=== PATIENT | female | born 1995 | race Caucasian/White ===

== ENCOUNTER → 2019-01-19 | Outpatient (REF) | payer OTHER ==
[2019-01-19 13:27] LABS: HEMATOCRIT 39.9 % (36.0-47.0); HEMOGLOBIN 13.6 g/dl (12.0-15.5); MEAN CORPUSCULAR HEMOGLOBIN 31.4 pg (27.0-33.0); MEAN CORPUSCULAR HGB CONC 34.1 g/dl (32.0-36.5); MEAN CORPUSCULAR VOLUME 92.1 fl (80.0-96.0); PLATELET COUNT, AUTOMATED 186 10^3/uL (150-450); RED BLOOD COUNT 4.33 10^6/uL (4.00-5.40); WHITE BLOOD COUNT 5.5 10^3/uL (4.0-10.0)
[2019-01-19 14:42] LABS: HCG, SERUM QUANTITATIVE 4595 MIU/ML; HEPATITIS C VIRUS ABY INDEX 0.1 INDEX (<0.8); HIV 1&2 SCREEN CENTAUR NEGATIVE (NEGATIVE); RUBELLA IgG QUALITATIVE IMMUNE (IMMUNE)
== END ==
LOC: M LAB REF 12:45
PROVIDERS: ATTEND Nurse Practitioner Women's Health
DX: O36.80X0 Pregnancy with inconclusive fetal viability, not applicable or unspecified (principal); Z32.01 Encounter for pregnancy test, result positive

== ENCOUNTER → 2019-04-27 | Outpatient (CLI) | payer OTHER | LOC: M LAB 10:59 | PROVIDERS: ATTEND Nurse Practitioner Women's Health | DX: Z34.02 Encounter for supervision of normal first pregnancy, second trimester (principal); Z3A.00 Weeks of gestation of pregnancy not specified ==

== ENCOUNTER → 2019-07-02 | Outpatient (CLI) | payer OTHER ==
[2019-07-02 12:40] LABS: HEMATOCRIT 37.1 % (36.0-47.0); HEMOGLOBIN 12.3 g/dl (12.0-15.5); MEAN CORPUSCULAR HEMOGLOBIN 32.8 pg (27.0-33.0); MEAN CORPUSCULAR HGB CONC 33.2 g/dl (32.0-36.5); MEAN CORPUSCULAR VOLUME 98.9 fl (80.0-96.0); PLATELET COUNT, AUTOMATED 158 10^3/uL (150-450); RED BLOOD COUNT 3.75 10^6/uL (4.00-5.40); WHITE BLOOD COUNT 9.4 10^3/uL (4.0-10.0)
== END ==
LOC: M LAB 10:43
PROVIDERS: ATTEND Nurse Practitioner Women's Health
DX: Z34.82 Encounter for supervision of other normal pregnancy, second trimester (principal); Z3A.00 Weeks of gestation of pregnancy not specified

== ENCOUNTER → 2019-08-03 | Outpatient (CLI) | payer OTHER ==
--- NOTE | 2019-08-03 08:02 | REP ---
Clinical: Growth evaluation. Comparison: None . Findings: Examination demonstrates a single live intrauterine in cephalic presentation. motion is identified by technologist. Placenta is noted posterior and grade zero without evidence for placenta previa or abruption. Amniotic fluid volume is normal. Cervix appears closed. No evidence for nuchal cord. Gestational age by LMP the 33 weeks 3 days with TONY 02/18/2020 . Gestational age by current measurements 33 weeks 3 days with TONY 09/18/2019 . FHR equals 155 beats per minute. BPD 8.3 cm 33 weeks 3 days HC 30.8 cm 34 weeks 2 days AC 29.0 cm 33 weeks 0 days FL 6.5 cm 33 weeks 5 days HL 5.7 cm 33 weeks 0 days HC/AC ratio 1.06 Estimated weight 2185 grams ( 45th percentile). Amniotic fluid index: 14.8 cm Umbilical cord SD ratio: 2.25 (2.00 - 3.00) Anatomical assessment demonstrates normal structures including cranium, choroid plexus, cavum, cerebellum/posterior fossa, lungs, four-chamber heart, diaphragm, stomach, three-vessel cord, kidneys/bladder, and spine. Impression: Single live advanced gestation demonstrating appropriate interval growth. Electronically Signed by Nathan Bledsoe MD 08/03/2019 07:54 A
== END ==
LOC: M RAD 06:30
PROVIDERS: ATTEND Obstetrics & Gynecology
DX: O09.893 Supervision of other high risk pregnancies, third trimester (principal); Z3A.33 33 weeks gestation of pregnancy

== ENCOUNTER → 2019-08-10 | Outpatient (CLI) | payer OTHER ==
--- NOTE | 2019-08-10 10:02 | REP ---
Clinical: well-being Comparison: 08/03/2019 . Findings: Examination demonstrates a single live intrauterine in cephalic presentation. motion is identified by technologist. Placenta is noted posterior and grade I I without evidence for placenta previa or abruption. Amniotic fluid volume is normal. No evidence for nuchal cord. Gestational age by LMP 34 weeks 3 days with TONY 09/18/2019 . FHR equals 155 beats per minute. Biophysical profile score: 8/8 Amniotic fluid index: 14.4 cm Umbilical cord SD ratio: 2.82 (2.00 - 3.00). Impression: Single live advanced gestation in cephalic presentation. Biophysical profile score and amniotic fluid volume are normal. Electronically Signed by Nathan Bledsoe MD 08/10/2019 09:54 A
== END ==
LOC: M RAD 09:06
PROVIDERS: ATTEND Obstetrics & Gynecology
DX: O09.893 Supervision of other high risk pregnancies, third trimester (principal)

== ENCOUNTER → 2019-08-14 | Outpatient (REF) | payer OTHER | LOC: M LAB REF 12:32 | PROVIDERS: ATTEND Obstetrics & Gynecology | DX: Z36.85 Encounter for antenatal screening for Streptococcus B (principal) ==

== ENCOUNTER → 2019-08-20 | Outpatient (CLI) | payer OTHER ==
--- NOTE | 2019-08-20 13:47 | REP ---
OB ULTRASOUND: Real-time sonographic evaluation of the gravid uterus is performed. There is a single living intrauterine gestation. The estimated gestational age 35 weeks 6 days with EDC 09/17/2019. heart rate is 152 beats per minute. The amniotic fluid is within normal limits, BAKARI is 9.2, within normal range of 7.7 to 24.9. Biophysical profile score is 8.8. S/D ratio 2.58 is within normal range of 2.0 to 3.0. RI: 0.61 within normal range of 0.59 to 0.75. position is vertex. Placenta is posterior and grade 1 with no previa or abruption. Electronically Signed by Thompson Nash MD 08/20/2019 05:54 P
== END ==
LOC: M RAD 12:16
PROVIDERS: ATTEND Obstetrics & Gynecology
DX: O09.893 Supervision of other high risk pregnancies, third trimester (principal)

== ENCOUNTER → 2019-08-24 | Outpatient (CLI) | payer OTHER ==
--- NOTE | 2019-08-24 11:45 | REP ---
OB ULTRASOUND: Real-time sonographic evaluation of the gravid uterus is performed. There is a single living intrauterine gestation. Estimated gestational age 36 weeks 3 days, EDC 09/18/2019. Today's measurements indicate appropriate growth. BPD 89 mm = 35 weeks 5 days, 41st percentile HC 329 mm = 37 weeks 3 days, 68th percentile AC 331 mm = 37 weeks 0 day, 59th percentile Femur length 72 mm = 36 weeks 6 days, 56th percentile HC/AC ratio 1.00 within normal range of 0.92 to 1.11. Estimated weight 3050 grams, 60th percentile. heart rate 153 beats per minute. Amniotic fluid within normal limits, BAKARI 7.7 within normal range of 7.6-24.7. S/D ratio 2.64 within normal range of 1.84-2.84. RI 0.62 within normal range of 0.59-0.75. Visualized anatomy today includes lateral ventricles, posterior fossa, stomach, kidneys, bladder and spine which are all grossly unremarkable. position is vertex. Placenta is fundal and grade 3 with no previa or abruption. Biophysical profile score is 8/8. Electronically Signed by Thompson Nash MD 08/28/2019 03:26 P
== END ==
LOC: M RAD 09:06
PROVIDERS: ATTEND Obstetrics & Gynecology
DX: O09.893 Supervision of other high risk pregnancies, third trimester (principal)

== ENCOUNTER → 2020-10-21 | Outpatient (REF) | payer OTHER ==
[2020-10-21 18:21] LABS: HEMATOCRIT 42.4 % (36.0-47.0); HEMOGLOBIN 14.1 g/dl (12.0-15.5); MEAN CORPUSCULAR HEMOGLOBIN 31.6 pg (27.0-33.0); MEAN CORPUSCULAR HGB CONC 33.3 g/dl (32.0-36.5); MEAN CORPUSCULAR VOLUME 95.1 fl (80.0-96.0); PLATELET COUNT, AUTOMATED 189 10^3/uL (150-450); RED BLOOD COUNT 4.46 10^6/uL (4.00-5.40); WHITE BLOOD COUNT 8.6 10^3/uL (4.0-10.0)
[2020-10-21 18:55] LABS: FREE T4 1.06 NG/DL (0.76-1.46)
[2020-10-21 19:35] LABS: HEPATITIS C VIRUS ABY INDEX < 0.0 INDEX (<0.8)
[2020-10-21 19:36] LABS: HIV 1&2 SCREEN CENTAUR NEGATIVE (NEGATIVE)
[2020-10-24 18:08] LABS: VITAMIN D 1,25 DIHYDROXY 59.4 pg/mL (19.9-79.3)
== END ==
LOC: M PLALAB 14:26
PROVIDERS: ATTEND Advanced Practice Midwife
DX: Z34.91 Encounter for supervision of normal pregnancy, unspecified, first trimester (principal); Z3A.11 11 weeks gestation of pregnancy

== ENCOUNTER → 2020-11-18 | Outpatient (REF) | payer OTHER | LOC: M SFHCWAGY 10:10 | PROVIDERS: ATTEND Advanced Practice Midwife | DX: Z12.4 Encounter for screening for malignant neoplasm of cervix (principal) ==

== ENCOUNTER → 2020-12-12 | Outpatient (CLI) | payer OTHER ==
--- NOTE | 2020-12-12 12:50 | REP ---
INDICATION: ANATOMY. COMPARISON: None. TECHNIQUE: Transabdominal scanning FINDINGS: Multiple ultrasonographic images of the gravid uterus shows a single living intrauterine gestation in variable positions. Doppler interrogation of the heart shows a heart rate of 158 beats per minute. The placenta is posterior and not low-lying. The cervix measures 3.5 cm length and is closed. The subjective amniotic fluid volume is within normal limits. BPD: 3.8 cm 17 weeks 3 days AC: 14.1 cm 17 weeks 3 days AC: 12.4 cm 18 weeks 0 days FL: 2.4 cm 17 weeks 4 days Estimated weight is 208 g which is less than 3rd percentile for an 18 week 4 day gestational age. The fetus was too small for an optimal anatomical screen. IMPRESSION: Single living intrauterine gestation as described above with an estimated gestational age of 17 weeks 4 days via composite criteria and an estimated date of delivery of 05/18/2021 by today's exam. A anatomical screen should be performed at 20 to 22 weeks gestation. <Electronically signed by Zoltan Sullivan > 12/12/20 [id number]
== END ==
LOC: M WHC 09:33
PROVIDERS: ATTEND Advanced Practice Midwife
DX: Z34.82 Encounter for supervision of other normal pregnancy, second trimester (principal)

== ENCOUNTER → 2021-01-09 | Outpatient (CLI) | payer OTHER ==
--- NOTE | 2021-01-09 14:57 | REP ---
INDICATION: ANATOMY. COMPARISON: 12/12/2020 TECHNIQUE: Second trimester OB ultrasound anatomy screen, repeat. FINDINGS: Scanning demonstrates a viable single intrauterine gestation in a cephalic lie. motion is observed and heart rate is recorded at 134 beats per minute. An posterior grade 1 placenta is seen without evidence of previa or abruption. Amniotic fluid is subjectively normal. Closed cervical length is measured at 3.4 cm transabdominally. No extrauterine abnormality is observed. There has been appropriate interval growth. No anomaly is seen. The following anatomic structures are identified and felt to be sonographically unremarkable: cranium, choroid plexus, cavum, cerebellum and posterior fossa, face and profile, lungs, four-chamber heart with left and right ventricular outflow tract views, diaphragm, left-sided stomach, abdominal wall cord insertion, three-vessel umbilical cord, kidneys and bladder, spine, and upper and lower extremities. The structures not visualized on the previous study are seen today including the nose and lips view, four-chamber heart view and the ventricular outflow tracks. As above, no anomalies. Biometry chart: BPD 5.3 cm; 22 weeks 0 days Head circumference 19.5 cm; 21 weeks 5 days Abdominal circumference 17.2 cm; 22 weeks 1 days Femur length 3.8 cm; 22 weeks 2 days Humeral length 3.6 cm; 22 weeks 4 days HC/AC ratio normal 1.13 Cephalic index normal 0.75 Estimated weight 478 grams, 1 pounds 0 ounces, 24 percentile for 22 weeks 4 days. IMPRESSION: Viable single intrauterine gestation at 22 weeks 1 days by today's composite sonographic criteria. Expected gestational age estimate based on prior sonography is 22 weeks is 4 days. TONY by prior sonography 05/11/2021. No anomaly. <Electronically signed by Alexandru Tolentino > 01/09/21 [id number]
== END ==
LOC: M WHC 09:06
PROVIDERS: ATTEND Advanced Practice Midwife
DX: Z34.82 Encounter for supervision of other normal pregnancy, second trimester (principal)

== ENCOUNTER → 2021-02-11 | Outpatient (CLI) | payer OTHER ==
[2021-02-11 13:07] LABS: HEMATOCRIT 37.8 % (36.0-47.0); HEMOGLOBIN 13.1 g/dl (12.0-15.5); MEAN CORPUSCULAR HEMOGLOBIN 33.3 pg (27.0-33.0); MEAN CORPUSCULAR HGB CONC 34.7 g/dl (32.0-36.5); MEAN CORPUSCULAR VOLUME 96.2 fl (80.0-96.0); PLATELET COUNT, AUTOMATED 160 10^3/uL (150-450); RED BLOOD COUNT 3.93 10^6/uL (4.00-5.40); WHITE BLOOD COUNT 11.7 10^3/uL (4.0-10.0)
== END ==
LOC: M PLALAB 11:35
PROVIDERS: ATTEND Advanced Practice Midwife
DX: Z34.82 Encounter for supervision of other normal pregnancy, second trimester (principal)
CPT/HCPCS: 36415; 82950; 85027; 86850; 86900; 86901; G0463